=== PATIENT | male | born 1960 | race Caucasian/White ===

== ENCOUNTER 2019-07-26 15:08 | Outpatient (CLI) | payer OTHER | END 2019-07-26 15:18 | disposition home or self-care (01) | LOC: LAB 15:08 | PROVIDERS: ATTEND Radiology Diagnostic Radiology | DX: N20.0 Calculus of kidney (principal) ==

== ENCOUNTER 2019-07-30 07:49 | Outpatient (CLI) | payer OTHER | END 2019-07-30 08:11 | disposition home or self-care (01) | LOC: TOM 07:49 | PROVIDERS: ATTEND Urology | DX: D62 Acute posthemorrhagic anemia (principal) ==

== ENCOUNTER 2022-04-12 08:23 | Outpatient (CLI) | payer OTHER | END 2022-04-12 08:25 | disposition home or self-care (01) | LOC: NUCLEAR 08:23 | PROVIDERS: ATTEND Internal Medicine Cardiovascular Disease | DX: I20.8 Other forms of angina pectoris (principal); I11.9 Hypertensive heart disease without heart failure | CPT/HCPCS: 78452; 93017; A9500; J0153 ==

== ENCOUNTER 2024-09-07 05:31 | Day surgery (SDC) | payer OTHER ==
[2024-08-30 12:07] VITALS: BP 135/85
[~2024-09-07] VITALS: Ht 177.8 cm; Wt 95.3 kg
[~2024-09-07 05:31] MED LIST: DIOVAN40 MG; TOPROL XL50 M1 PO
[2024-09-07] MEDS ORDERED: METRONIDAZOLE/SODIUM CHLORIDE 500 MG/100 ML PIGGYBACK IV ONE (07:05)
[2024-09-07] MEDS ORDERED: CEFTRIAXONE SODIUM 2,000 MG VIAL ONE (07:05)
[2024-09-07] MEDS ORDERED: POVIDONE-IODINE 118 ML BOTT TOP ONE (07:13)
[2024-09-07] MEDS ORDERED: HEMOSTATIC MATRIX 1 KIT KIT TOP ONE (07:13)
[2024-09-07] MEDS ORDERED: LIDOCAINE HCL 1%/EPINEPHRINE 20ML VIAL IJ ONE (07:13)
[2024-09-07] MEDS ORDERED: BUPIVACAINE HCL/MPF 0.5% 30ML VIAL ONE (07:13)
[2024-09-07] MEDS ORDERED: DIBUCAINE 30 GM TUBE ONE (07:13)
[2024-09-07] MEDS ORDERED: COLACE100 MG PO (09:01)
[2024-09-07] MEDS ORDERED: NEURONTIN300 MG PO (09:01)
[2024-09-07] MEDS ORDERED: TRAM1TAB98 PO (09:01)
== END 2024-09-07 12:05 | disposition home or self-care, planned readmission (81) ==
LOC: CIR.AMB 05:31
PROVIDERS: ATTEND Surgery
DX: K62.4 Stenosis of anus and rectum (principal); K60.1 Chronic anal fissure; K62.5 Hemorrhage of anus and rectum